=== PATIENT | male | born 1960 | race Caucasian/White ===

== ENCOUNTER 2016-08-20 10:59 | Emergency (ER) | payer SELFPAY ==
[~2016-08-20] VITALS: Ht 167.6 cm; Wt 75.0 kg
[2016-08-20 12:50] LABS: BASOPHILS % 1.3 % (0.0-2.0); EOSINOPHILS % 1.4 % (0.0-5.0); HEMATOCRIT. 39.5 % (42.0-52.0); LYMPHOCYTES % 21.2 % (20.0-50.0); MEAN CORPUSCULAR HEMOGLOBIN 29.9 pg (28.0-32.0); MEAN CORPUSCULAR VOLUME 84.4 fL (80.0-94.0); MEAN PLATELET VOLUME 7.3 fl (7.4-10.4); MONOCYTES % 6.6 % (2.0-8.0); NEUTROPHILS % 69.5 % (40.0-76.0); PLATELET 248 x1000/uL (130-400); RED BLOOD CELL COUNT 4.69 mill/uL (4.7-6.1)
[2016-08-20 12:56] LABS: CHLORIDE 103 mEq/L (98-107)
[2016-08-20 13:01] LABS: CARBON DIOXIDE 30 mEq/L (21-32)
[2016-08-20] MEDS ORDERED: MORPHINE SULFATE 4 MG/ML CPJ (NOT FOR IM USE) IV ONE (13:45)
[2016-08-20] MEDS ORDERED: SODIUM CHLORIDE 0.9% 1,000 ML IV ONE (13:45)
[2016-08-20] MEDS ORDERED: IOHEXOL-300 100 ML BOTTLE ONE (13:47)
[2016-08-20] MEDS ORDERED: SODIUM CHLORIDE 0.9% 10ML VIAL ONE (13:47)
[2016-08-20] MEDS ORDERED: CLINDAMYCIN 600 MG in DEXTROSE 5% WATER 50 ML IV ONE (15:00)
[2016-08-20] MEDS: CEFTRIAXONE 1 G PREMIX 50 ML IV ONE ×2 (15:57→15:58)
[2016-08-20 18:05] VITALS: BP 142/64
== END 2016-08-20 18:10 | disposition home or self-care (01) ==
LOC: ER 12:42
DX: M27.2 Inflammatory conditions of jaws (principal)
CPT/HCPCS: 36415; 70491; 80048; 85025; 87040; 96361; 96365; 96368; 96375; 99285; A4216; J0696; J2270; J3490; J7030; Q9967; Z7610; J7060

== ENCOUNTER 2016-10-21 14:17 | Emergency (ER) | payer MEDICAID ==
[~2016-10-21] VITALS: Ht 170.2 cm; Wt 59.0 kg
[~2016-10-21 14:17] MED LIST: IOHEXOL-300 100 ML BOTTLE ONE; SODIUM CHLORIDE 0.9% 10ML VIAL ONE
[2016-10-21] MEDS ORDERED: MORPHINE SULFATE 4 MG/ML CPJ (NOT FOR IM USE) IV ONE (17:00)
[2016-10-21] MEDS ORDERED: SODIUM CHLORIDE 0.9% 500 ML IV ONE (17:00)
[2016-10-21] MEDS ORDERED: AMPICILLIN SOD/SULBACTAM NA 3 G in SODIUM CHLORIDE 0.9% 100 ML IV SCH (17:00)
[2016-10-21 17:37] LABS: EOSINOPHILS % 1.9 % (0.0-5.0); HEMATOCRIT. 34.2 % (42.0-52.0); HEMOGLOBIN. 11.7 g/dL (14.0-18.0); LYMPHOCYTES % 18.9 % (20.0-50.0); MEAN CORPUSCULAR HEMOGLOBIN 29.4 pg (28.0-32.0); MEAN CORPUSCULAR VOLUME 85.5 fL (80.0-94.0); MEAN PLATELET VOLUME 7.4 fl (7.4-10.4); NEUTROPHILS % 69.2 % (40.0-76.0); PLATELET 317 x1000/uL (130-400); RED CELL DISTRIBUTION WIDTH 12.9 % (11.6-14.6)
[2016-10-21 17:38] LABS: CHLORIDE 103 mEq/L (98-107)
[2016-10-21 17:44] LABS: CARBON DIOXIDE 30 mEq/L (21-32)
[2016-10-22 02:53] VITALS: BP 128/61
== END 2016-10-22 03:15 | disposition short-term general hospital (02) ==
LOC: ER 17:23
DX: L03.211 Cellulitis of face (principal); M27.2 Inflammatory conditions of jaws; K05.10 Chronic gingivitis, plaque induced; K04.7 Periapical abscess without sinus; K02.9 Dental caries, unspecified; F17.200 Nicotine dependence, unspecified, uncomplicated
CPT/HCPCS: 36415; 70487; 80048; 85025; 96365; 96375; 99285; A4216; J0295; J2270; J7040; Q9967; Z7610; J7050

== ENCOUNTER 2016-11-13 15:36 | Emergency (ER) | payer MEDICAID ==
[~2016-11-13] VITALS: Ht 162.6 cm; Wt 64.0 kg
[2016-11-13] MEDS ORDERED: CEFTRIAXONE 1 G PREMIX 50 ML IV ONE (16:30)
[2016-11-13] MEDS ORDERED: KETOROLAC 30MG/ML VIAL IV ONE (16:30)
[2016-11-13 17:45] VITALS: BP 112/64
== END 2016-11-13 18:04 | disposition home or self-care (01) ==
LOC: ER 16:45
DX: R68.84 Jaw pain (principal); K04.7 Periapical abscess without sinus
CPT/HCPCS: 96365; 96374; 99284; J0696; J1885; Z7610

== ENCOUNTER 2016-12-14 10:43 | Emergency (ER) | payer SELFPAY ==
[~2016-12-14] VITALS: Ht 160 cm; Wt 65.0 kg
[2016-12-14] MEDS ORDERED: SODIUM CHLORIDE 0.9% 1,000 ML IV ONE (11:19)
[2016-12-14] MEDS ORDERED: VANCOMYCIN 1 G PREMIX 200 ML IV SCH (11:30)
[2016-12-14] MEDS ORDERED: PIPERACILLIN/TAZOBACTAM 3.375GM/50ML PREMIX IV ONE (11:30)
[2016-12-14] MEDS: PIPERACILLIN/TAZ 3.375G PREMIX 50 ML IV NR ×2 (11:42→14:16)
[2016-12-14 11:51] LABS: EOSINOPHILS % 1.3 % (0.0-5.0); HEMATOCRIT. 34.5 % (42.0-52.0); HEMOGLOBIN. 11.8 g/dL (14.0-18.0); MEAN CORPUSCULAR HEMOGLOBIN 28.3 pg (28.0-32.0); MEAN CORPUSCULAR VOLUME 82.9 fL (80.0-94.0); MEAN PLATELET VOLUME 6.3 fl (7.4-10.4); MONOCYTES % 5.6 % (2.0-8.0); NEUTROPHILS % 71.1 % (40.0-76.0); PLATELET 388 x1000/uL (130-400); RED BLOOD CELL COUNT 4.16 mill/uL (4.7-6.1); RED CELL DISTRIBUTION WIDTH 13.4 % (11.6-14.6)
[2016-12-14 12:07] LABS: CARBON DIOXIDE 29 mEq/L (21-32); CHLORIDE 100 mEq/L (98-107); ETHANOL BLOOD < 10 mg/dL; TROPONIN I 0.05 ng/mL (0.00-0.04)
[2016-12-14 12:10] LABS: INR 1.1; PROTHROMBIN TIME 11.4 sec (9.4-11.6)
[2016-12-14] MEDS ORDERED: IOHEXOL-300 100 ML BOTTLE ONE (14:11)
[2016-12-14 18:16] VITALS: BP 115/69
== END 2016-12-14 18:15 | disposition left against medical advice (07) ==
LOC: ER 12:40 → EDBEDREQ 14:27 → ER 18:15 → CANBEDREQ 12-15 01:43
DX: L03.211 Cellulitis of face (principal); M86.8X8 Other osteomyelitis, other site; K11.7 Disturbances of salivary secretion; R00.1 Bradycardia, unspecified; D64.9 Anemia, unspecified; E88.09 Other disorders of plasma-protein metabolism, not elsewhere classified; J44.9 Chronic obstructive pulmonary disease, unspecified; M79.89 Other specified soft tissue disorders; Z72.0 Tobacco use
CPT/HCPCS: 36415; 70487; 70491; 71010; 80053; 83605; 83880; 84484; 85025; 85610; 87040; 93005; 96365; 96367; 99284; G0482; J2543; J3370; Q9967; J7030

== ENCOUNTER 2016-12-15 09:29 | Emergency (ER) | payer SELFPAY ==
[~2016-12-15] VITALS: Ht 157.5 cm; Wt 65.0 kg
[2016-12-15] MEDS ORDERED: SODIUM CHLORIDE 0.9% 1000ML BAG (SEPSIS BOLUS) IV ONE (10:30)
[2016-12-15] MEDS ORDERED: VANCOMYCIN 1 G PREMIX 200 ML IV ONE (10:30)
[2016-12-15] MEDS ORDERED: PIPERACILLIN/TAZ 3.375G PREMIX 50 ML IV ONE (10:30)
[2016-12-15 10:59] LABS: BASOPHILS % 1.3 % (0.0-2.0); EOSINOPHILS % 1.3 % (0.0-5.0); HEMOGLOBIN. 11.5 g/dL (14.0-18.0); LYMPHOCYTES % 21.8 % (20.0-50.0); MEAN CORPUSCULAR HEMOGLOBIN 28.6 pg (28.0-32.0); MEAN CORPUSCULAR VOLUME 82.1 fL (80.0-94.0); MEAN PLATELET VOLUME 6.4 fl (7.4-10.4); MONOCYTES % 6.2 % (2.0-8.0); NEUTROPHILS % 69.4 % (40.0-76.0); PLATELET 379 x1000/uL (130-400); RED BLOOD CELL COUNT 4.03 mill/uL (4.7-6.1); RED CELL DISTRIBUTION WIDTH 13.5 % (11.6-14.6)
[2016-12-15 11:06] LABS: INR 1.1; PROTHROMBIN TIME 11.8 sec (9.4-11.6)
[2016-12-15 11:16] LABS: CARBON DIOXIDE 28 mEq/L (21-32); CHLORIDE 100 mEq/L (98-107)
[2016-12-15 14:00] VITALS: BP 146/79
== END 2016-12-15 16:39 | disposition left against medical advice (07) ==
LOC: ER 09:29 → CANRESERV 15:50 → ENRESERV 15:50 → CANBEDREQ 16:11 → ER 16:39
DX: M27.2 Inflammatory conditions of jaws (principal); L02.01 Cutaneous abscess of face
CPT/HCPCS: 36415; 80053; 83605; 85025; 85610; 87040; 93005; 96365; 96367; 99284; J2543; J3370; J7030; J7050; Z7610

== ENCOUNTER 2016-12-16 09:28 | Emergency (ER) | payer SELFPAY ==
[~2016-12-16] VITALS: Ht 152.4 cm; Wt 68.0 kg
[2016-12-16 09:49] VITALS: BP 127/63
== END 2016-12-16 10:31 | disposition left against medical advice (07) ==
LOC: ER 10:19
DX: L02.01 Cutaneous abscess of face (principal); M27.2 Inflammatory conditions of jaws
CPT/HCPCS: 99281

== ENCOUNTER 2017-01-21 14:17 | Emergency (ER) | payer SELFPAY ==
[~2017-01-21] VITALS: Ht 167.6 cm; Wt 55.0 kg
[2017-01-21] MEDS: SODIUM CHLORIDE 0.9% 1000ML BAG (SEPSIS BOLUS) IV ONE (16:43)
[2017-01-21] MEDS: PIPERACILLIN/TAZ 3.375G PREMIX 50 ML IV ONE (16:43)
[2017-01-21 16:49] LABS: BASOPHILS % 0.4 % (0.0-2.0); EOSINOPHILS % 0.2 % (0.0-5.0); HEMATOCRIT. 36.3 % (42.0-52.0); HEMOGLOBIN. 12.5 g/dL (14.0-18.0); LYMPHOCYTES % 16.2 % (20.0-50.0); MEAN CORPUSCULAR HEMOGLOBIN 28.5 pg (28.0-32.0); MEAN CORPUSCULAR VOLUME 82.7 fL (80.0-94.0); MEAN PLATELET VOLUME 6.9 fl (7.4-10.4); MONOCYTES % 4.1 % (2.0-8.0); NEUTROPHILS % 79.1 % (40.0-76.0); PLATELET 316 x1000/uL (130-400); RED BLOOD CELL COUNT 4.39 mill/uL (4.7-6.1); RED CELL DISTRIBUTION WIDTH 14.5 % (11.6-14.6)
[2017-01-21 16:54] LABS: INR 1.1; PROTHROMBIN TIME 11.8 sec (9.4-11.6)
[2017-01-21 17:03] LABS: CARBON DIOXIDE 31 mEq/L (21-32); CHLORIDE 98 mEq/L (98-107); TROPONIN I < 0.02 ng/mL (0.00-0.04)
[2017-01-21 17:18] LABS: CLARITY URINE CLEAR (CLEAR); COLOR URINE YELLOW (YELLOW); GLUCOSE URINE NEGATIVE (NEGATIVE); KETONES URINE NEGATIVE (NEGATIVE); LEUKOCYTE ESTERASE URINE NEGATIVE (NEGATIVE); NITRITE URINE NEGATIVE (NEGATIVE); OCCULT BLOOD URINE NEGATIVE (NEGATIVE); PH URINE 5.5 (4.5-8.0); PROTEIN URINE NEGATIVE (NEGATIVE); SPECIFIC GRAVITY URINE 1.025 (1.005-1.030)
[2017-01-21] MEDS: VANCOMYCIN 1 G PREMIX 200 ML IV SCH (18:26)
[2017-01-21] MEDS ORDERED: IOHEXOL-300 100 ML BOTTLE ONE (18:27)
[2017-01-21] MEDS: LEVOFLOXACIN 750MG PREMIX 150 ML IV NR (21:19)
[2017-01-21 22:37] VITALS: BP 125/70
== END 2017-01-21 23:17 | disposition left against medical advice (07) ==
LOC: ER 14:21 → CANBEDREQ 01-22 01:59
DX: M27.2 Inflammatory conditions of jaws (principal); R79.9 Abnormal finding of blood chemistry, unspecified; R79.1 Abnormal coagulation profile
CPT/HCPCS: 36415; 70450; 70487; 71010; 80053; 81003; 83605; 84484; 85025; 85610; 87040; 87086; 93005; 96365; 96366; 96367; 99285; J1956; J2543; J3370; J7030; Q9967; Z7610

== ENCOUNTER 2017-01-25 09:20 | Emergency (ER) | payer SELFPAY ==
[~2017-01-25] VITALS: Ht 165.1 cm; Wt 50.0 kg
[2017-01-25 09:46] VITALS: BP 92/33
== END 2017-01-25 11:00 | disposition left against medical advice (07) ==
LOC: ER 09:28
DX: Z53.21 Procedure and treatment not carried out due to patient leaving prior to being seen by health care provider (principal)